=== PATIENT | male | born 1975 | race Caucasian/White ===

== ENCOUNTER 2017-09-13 18:56 | Emergency (ER) | payer OTHER ==
[~2017-09-13] VITALS: Ht 180.3 cm; Wt 78.0 kg
[2017-09-13] MEDS ORDERED: CANABIS MEDICINAL (19:23)
== END 2017-09-13 22:40 | disposition home or self-care (01) ==
LOC: ER 18:56
DX: T15.12XA Foreign body in conjunctival sac, left eye, initial encounter (principal)

== ENCOUNTER 2018-01-23 14:40 | Emergency (ER) | payer OTHER ==
[~2018-01-23] VITALS: Ht 180.3 cm; Wt 74.8 kg
[~2018-01-23 14:40] MED LIST: CANABIS MEDICINAL
== END 2018-01-23 17:25 | disposition home or self-care (01) ==
LOC: ER 14:40
DX: B34.9 Viral infection, unspecified (principal)